=== PATIENT | female | born 1965 | race Caucasian/White ===

== ENCOUNTER → 2017-05-27 | Outpatient (CLI) | payer SELFPAY ==
[~2017-05-27] MED LIST: CLARITIN; EXCEDRIN IB200 MG PO; GLUCOPHAGE; GLUCOTROL5 MG PO; GUAIFENESIN; METFORMIN500 MG PO; PREDNISONE10 MG PO; PRIMATENE0.22 MG/A1 IH; TUSS PO; ZITHROMAX Z PA250 MG PO
== END ==
LOC: COL.RAD 14:15
DX: D25.9 Leiomyoma of uterus, unspecified (principal); F17.210 Nicotine dependence, cigarettes, uncomplicated

== ENCOUNTER → 2017-08-24 | Outpatient (CLI) | payer SELFPAY | LOC: COL.VAS 09:54 | DX: E11.42 Type 2 diabetes mellitus with diabetic polyneuropathy (principal); I73.9 Peripheral vascular disease, unspecified; F17.210 Nicotine dependence, cigarettes, uncomplicated ==

== ENCOUNTER 2019-09-02 17:31 | Emergency (ER) | payer SELFPAY ==
[~2019-09-02] VITALS: Ht 157.5 cm; Wt 86.4 kg
[2019-09-02 18:23] LABS: BASO # 0.1 (0.0-0.2); EOS # 0.2 (0.0-0.7); EOS % 2.6 % (0-4.0); GRAN % 56.7 % (42.2-75.2); HEMATOCRIT 49.1 % (37.0-47.0); HEMOGLOBIN 16.7 g/dl (12.5-16.0); LYMPH # 2.7 (1.2-3.4); LYMPH % 30.1 % (20.0-51.0); MEAN CELL VOLUME 95 fl (80.0-100.0); MEAN CORPUSCULAR HEMOGLOBIN 32 pg (27.0-31.0); MEAN CORPUSCULAR HGB CONC 34 g/dl (33.0-37.0); MEAN PLATELET VOLUME 11.9 fl (7.4-10.4); MONO # 0.8 (0.1-0.6); MONO % 9.2 % (1.7-9.3); PLATELET COUNT 246 K/mm3 (130-400); RED BLOOD COUNT 5.19 M/mm3 (4.10-5.30); REDCELL DISTRIBUTION WIDTH-CV 12.8 % (11.5-14.5)
[2019-09-02 18:30] LABS: ALANINE AMINOTRANSFERASE 23 U/L (4-34); ALKALINE PHOSPHATASE 89 U/L (50-136); ANION GAP 8 mmol/L (7-16); AST,SGOT 21 U/L (15-37); BILIRUBIN,TOTAL 0.6 mg/dL (0.0-1.0); BLOOD UREA NITROGEN 11 mg/dL (7-17); C-REACTIVE PROTEIN 0.7 mg/dL (0.0-0.9); CALCIUM 9.1 mg/dL (8.4-10.2); CARBON DIOXIDE 26 mmol/L (22-30); CHLORIDE 103 mmol/L (98-107); CREATININE, serum 0.35 (0.52-1.25); GLUCOSE 341 mg/dL (74-106); SODIUM 137 mmol/L (137-145); TOTAL PROTEIN 7.3 gm/dL (6.4-8.2)
[2019-09-02 18:45] LABS: TROPONIN-I < 0.012 ng/mL (0.000-0.035)
[2019-09-02 18:47] LABS: ERYTHROCYTE SEDIMENTATION RATE 1 mm/hr (0-30)
[2019-09-02 18:58] LABS: COLLECTION METHOD CLEAN CATCH
[2019-09-02] MEDS ORDERED: PRINZIDE 12.5 M1 TAB PO ×2 (19:01)
[2019-09-02] MEDS ORDERED: GLUCOPHAGE500 MG/TAB PO ×2 (19:01)
[2019-09-02 19:07] LABS: MUCOUS Present /lpf; PH 6 (5-8); URINE APPEARANCE Clear; URINE BACTERIA None Seen /hpf; URINE BILIRUBIN Negative (NEGATIVE); URINE BLOOD Negative (NEGATIVE); URINE COLOR Yellow; URINE GLUCOSE 3+ (NEGATIVE); URINE KETONE Negative (NEGATIVE); URINE LEUKOCYTE ESTERASE Negative (NEGATIVE); URINE NITRATE Negative (NEGATIVE); URINE PROTEIN(semi-quant) 1+ (NEGATIVE); URINE RBC 0-2 /hpf; URINE UROBILINOGEN Negative (NEGATIVE)
[2019-09-02] MEDS ORDERED: GLUCOTROL 5M5 MG/TAB PO (19:29)
[2019-09-02] MEDS ORDERED: ULTRAM 50MG TAB50 MG PO (19:46)
[2019-09-02 20:10] VITALS: BP 142/77; PULSE 72; TEMP 98.3
== END 2019-09-02 20:10 | disposition home or self-care (01) ==
LOC: COL.ER 17:31
PROVIDERS: Emergency Medicine
DX: M54.2 Cervicalgia (principal); E11.65 Type 2 diabetes mellitus with hyperglycemia; E11.40 Type 2 diabetes mellitus with diabetic neuropathy, unspecified; I10 Essential (primary) hypertension; Z79.84 Long term (current) use of oral hypoglycemic drugs; Z91.14 Patient's other noncompliance with medication regimen
CPT/HCPCS: J1170; J1885; J2405; J7030

== ENCOUNTER → 2020-04-24 | Outpatient (CLI) | payer MEDICARE ==
[~2020-04-24] MED LIST changes: +GLUCOPHAGE500 MG/TAB PO; +GLUCOTROL 5M5 MG/TAB PO; +PRINZIDE 12.5 M1 TAB PO; +ULTRAM 50MG TAB50 MG PO
== END ==
LOC: COL.RAD 09:23
DX: H57.04 Mydriasis (principal); M54.12 Radiculopathy, cervical region; G60.9 Hereditary and idiopathic neuropathy, unspecified; G89.29 Other chronic pain

== ENCOUNTER → 2020-07-17 | Emergency (ER) | payer MEDICARE, MEDICAID ==
[~2020-07-17] VITALS: Ht 157.5 cm; Wt 89.1 kg
[~2020-07-17] MED LIST changes: +ASPIRIN 81M81 MG/TA2 PO; +CENTRUM1 TA1; +CHANTIX 1MG1 MG PO; +DAZIDOX10 MG PO; +DILATRATE-SR40 MG; +EZALLOR SPRINKL40 MG PO; +JANUVIA 100MG100 MG PO; +LYRICA 100MG C100 M1 PO; +PLAVIX 75MG TAB75 MG PO; +PRINIVIL40 MG PO; +VITAMIN D31000 I1 PO; +ZOLOFT 100MG100 MG PO
[2020-07-17 17:18] VITALS: TEMP 98.4
[2020-07-17 17:59] LABS: BASO # 0.1 (0.0-0.2); EOS # 0.3 (0.0-0.7); EOS % 2.3 % (0-4.0); GRAN # 7.2 (1.4-6.5); GRAN % 60.4 % (42.2-75.2); HEMATOCRIT 45.3 % (37.0-47.0); HEMOGLOBIN 15.2 g/dl (12.5-16.0); LYMPH # 3.3 (1.2-3.4); LYMPH % 27.8 % (20.0-51.0); MEAN CELL VOLUME 97 fl (80.0-100.0); MEAN CORPUSCULAR HEMOGLOBIN 33 pg (27.0-31.0); MEAN CORPUSCULAR HGB CONC 34 g/dl (33.0-37.0); MEAN PLATELET VOLUME 11.8 fl (7.4-10.4); MONO % 8.1 % (1.7-9.3); PLATELET COUNT 288 K/mm3 (130-400); RED BLOOD COUNT 4.66 M/mm3 (4.10-5.30); REDCELL DISTRIBUTION WIDTH-CV 12.8 % (11.5-14.5)
[2020-07-17 18:03] LABS: ALBUMIN 4.4 gm/dL (3.5-5.0); BILIRUBIN,TOTAL 0.3 mg/dL (0.0-1.0); CALCIUM 9.6 mg/dL (8.4-10.2); CREATININE, serum 0.62 (0.52-1.25); POTASSIUM 4.2 mmol/L (3.4-5.0); TOTAL PROTEIN 8.1 gm/dL (6.4-8.2)
[2020-07-17 18:11] LABS: INR 1.1 (0.8-3.0)
[2020-07-17 20:21] VITALS: BP 142/73; PULSE 88
== END ==
LOC: COL.ER 17:10
PROVIDERS: Emergency Medicine
DX: M50.00 Cervical disc disorder with myelopathy, unspecified cervical region (principal); M50.10 Cervical disc disorder with radiculopathy, unspecified cervical region; E11.9 Type 2 diabetes mellitus without complications; I10 Essential (primary) hypertension; E78.5 Hyperlipidemia, unspecified; F32.9 Major depressive disorder, single episode, unspecified; F17.210 Nicotine dependence, cigarettes, uncomplicated; Z79.02 Long term (current) use of antithrombotics/antiplatelets; Z79.82 Long term (current) use of aspirin; Z79.84 Long term (current) use of oral hypoglycemic drugs

== ENCOUNTER → 2020-09-25 | Outpatient (CLI) | payer MEDICARE ==
--- NOTE | 2020-09-25 13:35 | NUR ---
Patient had smoked cigarrette 45 min before appointment. Patient will need to reschedule appointment. Pamphlet and number given to patient to reschedule.
== END ==
LOC: COL.PUL 13:00
DX: R06.02 Shortness of breath (principal)

== ENCOUNTER → 2020-12-10 | Outpatient (CLI) | payer MEDICARE | LOC: COL.RAD 13:00 | DX: N28.1 Cyst of kidney, acquired (principal); R91.8 Other nonspecific abnormal finding of lung field; G90.2 Horner's syndrome; Z90.49 Acquired absence of other specified parts of digestive tract | CPT/HCPCS: Q9967 ==

== ENCOUNTER 2021-09-04 08:59 | Day surgery (SDC) | payer MEDICARE ==
--- NOTE | 2021-09-04 09:30 | NUR ---
Patient states that her bowel prep was not effective. Procedure cancelled for today and the office will call her to reschedule.
== END 2021-09-04 09:30 | disposition home or self-care (01) ==
LOC: SDCO 08:59
DX: Z12.11 Encounter for screening for malignant neoplasm of colon (principal); Z53.8 Procedure and treatment not carried out for other reasons

== ENCOUNTER 2021-10-02 13:28 | Day surgery (SDC) | payer MEDICARE ==
[~2021-10-02] VITALS: Ht 157.5 cm; Wt 77.3 kg
[2021-10-02 13:55] VITALS: BP 90/67; PULSE 87; TEMP 97.1
[2021-10-02] MEDS ORDERED: LYRICA 150MG C150 MG PO (14:22)
[2021-10-02] MEDS ORDERED: TRELEGY ELLIPT1 EACH IH (14:22)
[2021-10-02] MEDS ORDERED: TRULICITY1.5 MG/0.5 SQ (14:22)
[2021-10-02] MEDS ORDERED: DIOVAN 80MG80 MG PO (14:23)
[2021-10-02] MEDS ORDERED: CRESTOR40 MG PO (14:23)
[2021-10-02] MEDS ORDERED: CYMBALTA 60MG60 MG PO (14:24)
[2021-10-02] MEDS ORDERED: ZANAFLEX CAPSULE4 MG PO (14:24)
[2021-10-02] MEDS ORDERED: PLAQUENIL 200M200 MG PO (14:25)
[2021-10-02] MEDS ORDERED: PLAVIX 75MG TAB75 MG PO (14:25)
[2021-10-02] MEDS ORDERED: PLETAL50 MG PO (14:26)
[2021-10-02 16:35] VITALS: BP 118/67; PULSE 82; TEMP 96.8
[2021-10-02 16:50] VITALS: BP 121/103; PULSE 93
[2021-10-02 17:05] VITALS: BP 129/80; PULSE 78
--- NOTE | 2021-10-02 17:20 | NUR ---
1635 Pt returns from endo procedure via cart and RN assist to [facility]. Pt ambulates from cart to recliner with RN assist. Monitors on and alarms set. Call light within reach. Report received from RN. Pt alertness the same as preop. Pt requests coffee and muffin. Pt denies any pain or nausea. 1650 Pt taking food and drink well. No complications noted. 1718 Discharge instructions given to pt and pt's . All questions answered to their satisfaction. Handed to pt are a thank you card and discharge information. 1720 Pt transferred out of the hospital via wheelchair and this RN assist, to private vehicle driven by pt's .
== END 2021-10-02 17:20 | disposition home or self-care (01) ==
LOC: SDCO 13:28
DX: K59.00 Constipation, unspecified (principal); R19.7 Diarrhea, unspecified; R11.2 Nausea with vomiting, unspecified
CPT/HCPCS: J2405; J2704; J7120

== ENCOUNTER → 2021-12-29 | Outpatient (CLI) | payer MEDICARE ==
[~2021-12-29] MED LIST changes: +CRESTOR40 MG PO; +CYMBALTA 60MG60 MG PO; +DIOVAN 80MG80 MG PO; +LYRICA 150MG C150 MG PO; +PLAQUENIL 200M200 MG PO; +PLETAL50 MG PO; +TRELEGY ELLIPT1 EACH IH; +TRULICITY1.5 MG/0.5 SQ; +ZANAFLEX CAPSULE4 MG PO
== END ==
LOC: COL.RAD 15:45
DX: R59.0 Localized enlarged lymph nodes (principal)

== ENCOUNTER 2023-07-09 17:09 | Emergency (ER) | payer MEDICARE ==
[~2023-07-09] VITALS: Ht 157.5 cm; Wt 86.4 kg
[2023-07-09 17:14] VITALS: TEMP 98.5
[2023-07-09] MEDS ORDERED: NS 1,000 ML IV ONE ×2 (17:45→20:00)
[2023-07-09] MEDS ORDERED: Ondansetron 4 MG/2 ML VIAL IV ONE (17:45)
[2023-07-09 17:55] LABS: COLLECTION METHOD CLEAN CATCH
[2023-07-09 17:58] LABS: BASO # 0.1 K/mm3 (0.0-0.2); BASO % 0.6 % (0.0-2.0); GRAN # 6.2 K/mm3 (1.4-6.5); GRAN % 69.3 % (42.2-75.2); LYMPH # 1.4 K/mm3 (1.2-3.4); LYMPH % 15.4 % (20.0-51.0); MEAN CELL VOLUME 94 fl (80.0-100.0); MEAN CORPUSCULAR HGB CONC 35 g/dl (33.0-37.0); MEAN PLATELET VOLUME 11.4 fl (7.4-10.4); MONO # 1.3 K/mm3 (0.1-0.6); MONO % 14.5 % (1.7-9.3); PLATELET COUNT 256 K/mm3 (130-400); RED BLOOD COUNT 5.68 M/mm3 (4.10-5.30); REDCELL DISTRIBUTION WIDTH-CV 12.6 % (11.5-14.5)
[2023-07-09 18:05] LABS: PH 5.5 (5.0-8.5); URINE APPEARANCE CLEAR (CLEAR/HAZY); URINE BLOOD NEGATIVE (NEGATIVE); URINE COLOR YELLOW (YELLOW); URINE GLUCOSE 1+ (NEGATIVE); URINE KETONE 1+ (NEGATIVE); URINE NITRATE NEGATIVE (NEGATIVE); URINE PROTEIN(semi-quant) 2+ (NEGATIVE)
[2023-07-09 18:18] LABS: HEMATOCRIT 53.3 % (37.0-47.0); HEMOGLOBIN 18.7 g/dl (12.5-16.0); MEAN CORPUSCULAR HEMOGLOBIN 33 pg (27-31)
[2023-07-09 18:29] LABS: URINE BACTERIA RARE /hpf (NONE SEEN)
[2023-07-09 18:31] LABS: ALBUMIN 4.2 gm/dL (3.5-5.0); BILIRUBIN,TOTAL 0.5 mg/dL (0.2-1.2); C-REACTIVE PROTEIN 1.31 mg/dL (0.00-0.50); CALCIUM 9.8 mg/dL (8.4-10.2); CREATININE, serum 1.16 mg/dL (0.57-1.11); POTASSIUM 3.4 mmol/L (3.5-4.5); TOTAL PROTEIN 8.1 gm/dL (6.2-8.1)
[2023-07-09] MEDS ORDERED: Ketorolac 15 MG/ML VIAL IV ONE (19:15)
[2023-07-09] MEDS ORDERED: ZOFRAN ODT4 MG PO (20:11)
[2023-07-09] MEDS ORDERED: Home Ondansetron ODT 4 MG #2 ODT/PACK PO ONE (20:15)
[2023-07-09 21:11] VITALS: BP 102/42; PULSE 86
== END 2023-07-09 21:13 | disposition home or self-care (01) ==
LOC: COL.ER 17:09
PROVIDERS: Nurse Practitioner
DX: J10.1 Influenza due to other identified influenza virus with other respiratory manifestations (principal); J10.2 Influenza due to other identified influenza virus with gastrointestinal manifestations; E86.0 Dehydration; Z87.891 Personal history of nicotine dependence
CPT/HCPCS: J0780; J1885; J2405; J7030